=== PATIENT | male | born 1990 | race Caucasian/White ===

== ENCOUNTER 2020-03-16 19:16 | Emergency (ER) | payer OTHER ==
[~2020-03-16] VITALS: Ht 175.2 cm
== END 2020-03-16 21:32 | disposition short-term general hospital (02) ==
LOC: ED 19:16
DX: S01.412A Laceration without foreign body of left cheek and temporomandibular area, initial encounter (principal); Z88.0 Allergy status to penicillin; W25.XXXA Contact with sharp glass, initial encounter; Y93.89 Activity, other specified; Y92.89 Other specified places as the place of occurrence of the external cause; Y99.8 Other external cause status